=== PATIENT | female | born 1990 | race African-American/Black ===

== ENCOUNTER 2017-04-12 07:35 | Inpatient (IN) | payer BC, OTHER ==
[2017-04-12] MEDS: ELECTROLYTE-148 SOLN 1,000 ML IV SCH (08:00)
[2017-04-12] MEDS ORDERED: AMPICILLIN - 2 GM in SODIUM CHLORIDE 100 ML IVPB ONE (08:00)
[2017-04-12] MEDS ORDERED: ELECTROLYTE-148 SOLN 500 ML IV ONE (08:00)
[2017-04-12 08:20] VITALS: BMI 28.3
[2017-04-12 08:45] LABS: BASOPHIL 0.3 % (0-2.0); EOSINOPHIL 0.2 % (0-4.5); MCH 28.4 pg (25.7-33.7); MCHC 32.9 g/dl (32.0-36.0); MEAN CELL VOLUME 86.4 fl (80-96); MEAN PLT VOLUME 10.3 fl (7.5-11.1); NEUTROPHILS 82.2 % (42.8-82.8); PLATELET COUNT 166 K/MM3 (134-434); RDW 12.8 % (11.6-15.6); WHITE BLOOD COUNT 12.5 K/mm3 (4.0-10.0)
--- NOTE | 2017-04-12 08:48 | HP ---
Past Medical History - Primary Care Physician PCP:: Misael Giordano - Admission Chief Complaint: 37.2 weeks, labor, brandon breech History of Present Illness: 26 yo f g 1 p0 edc 05/01/17 care in [place] c/o contraction with ROM since 7 am today. cx 8 cm 100vx 0 mr breech presentation for c/s, rba discussed History Source: Patient Limitations to Obtaining History: No Limitations - Past Medical History ...: 1 ...Para: 0 ...Term: 0 ...: 0 ...Spon : 0 ...Induced : 0 ...Multiple Gestation: 0 ...LMP: 07/25/16 ... Weeks Gestation by Dates: 37.2 ...EDC by Dates: 05/01/17 ...EDC by Sono: 05/01/17 - Past Surgical History Hx Myomectomy: No Hx Transabdominal Cerclage: No - Smoking History Smoking history: Never smoked Have you smoked in the past 12 months: No - Alcohol/Substance Use Hx Alcohol Use: No History of Substance Use: reports: None - Social History History of Recent Travel: No Home Medications - Allergies Allergies/Adverse Reactions: Allergies Allergy/AdvReac Type Severity Reaction Status Date / Time No Known Allergies Allergy Verified 04/12/17 08:15 - Home Medications Home Medications: Ambulatory Orders Tablet 1 tab PO DAILY 04/12/17 Review of Systems - Review of Systems Constitutional: reports: No Symptoms Eyes: reports: No Symptoms HENT: reports: No Symptoms Neck: reports: No Symptoms Respiratory: reports: No Symptoms Gastrointestinal: reports: Abdominal Pain Genitourinary: reports: No Symptoms Breasts: reports: No Symptoms Reported Musculoskeletal: reports: No Symptoms Integumentary: reports: No Symptoms Neurological: reports: No Symptoms Endocrine: reports: No Symptoms Hematology/Lymphatic: reports: No Symptoms Psychiatric: reports: No Symptoms Physical Exam - Maternity Vital Signs: Vital Signs Temperature 98.6 F 04/12/17 08:00 Pulse Rate 110 H 04/12/17 08:00 Respiratory Rate 20 04/12/17 08:00 Blood Pressure 132/79 04/12/17 08:00 O2 Sat by Pulse Oximetry (%) Constitutional: Yes: Well Nourished, No Distress, Calm Eyes: Yes: WNL, Conjunctiva Clear, EOM Intact HENT: Yes: WNL, Atraumatic, Normocephalic Neck: Yes: WNL, Supple, Trachea Midline Cardiovascular: Yes: WNL, Regular Rate and Rhythm Breast(s): Yes: WNL - Abdominal Exam/OB Fundal Height: 36 Number of Fetuses: Single Presentation: Breech Contractions: Yes Regularity: Regular Intensity: Strong Monitor Mode: External Heart Rate Location: [facility] Category: I Accelerations: Uniform Decelerations: None - Vaginal Exam/OB Vaginal Bleediing: Bloody Show Speculum Exam: No Dilatation (cm): 8 Effacement (%): 80 Amniotic Membrane Status: Ruptured Amniotic Fluid: Yes: Clear Presentation: Brandon Breech Station: 0 - Physical Exam Musculoskeletal: Yes: WNL Extremities: Yes: WNL Edema: Yes Edema: LLE: Trace, RLE: Trace ...Motor Strength: WNL Psychiatric: Yes: WNL Hemorrhage Risk Assessment - Risk Factors Medium Risk Factors: Yes: None High Risk Factors: Yes: None Risk Score: 1 Risk Level: Medium Risk Problem List - Problems (1) with 37 weeks completed gestation Code(s): Z3A.37 - 37 WEEKS GESTATION OF (2) Labor established Code(s): ZNG1187 - (3) Breech presentation at Code(s): O32.1XX0 - MATERNAL CARE FOR BREECH PRESENTATION, UNSP Assessment/Plan c/s, rba discussed
[2017-04-12] MEDS ORDERED: oxyCODONE HCL 5 MG TABLET PO PRN ×2 (08:50)
[2017-04-12] MEDS ORDERED: BENZOCAINE 20% 57 GM BOTTLE TP PRN (08:50)
[2017-04-12] MEDS ORDERED: METHYLERGONOVINE MALEATE 0.2 MG/1 ML AMP IM PRN (08:50)
[2017-04-12] MEDS ORDERED: diphenhydrAMINE HCL 25 MG CAPSULE (FP) PO PRN (08:50)
[2017-04-12] MEDS ORDERED: BENZOCAINE 28 GM HEMORRHOIDAL OINTMENT PR PRN (08:50)
[2017-04-12] MEDS ORDERED: WITCH HAZEL 50% (TUCKS) 40 PAD/JAR PAD TP PRN (08:50)
[2017-04-12] MEDS ORDERED: morphine SULFATE/Preservative Free 0.5 MG/ML (1cc Syringe) SPIN ONE (08:56)
[2017-04-12 09:00] LABS: ALBUMIN 2.8 g/dl (3.4-5.0); ANION GAP 9 (8-16); BILIRUBIN,TOTAL 0.3 mg/dL (0.2-1.0); CALCIUM 8.5 mg/dL (8.5-10.1); CO2 24 mmol/L (21-32); CREATININE 0.5 mg/dL (0.55-1.02); GLUCOSE,RANDOM 90 mg/dL (74-106); SGOT/AST 14 U/L (15-37); SGPT/ALT 19 U/L (12-78); TOT PROT 6.2 g/dl (6.4-8.2)
[2017-04-12] MEDS ORDERED: OXYTOCIN 20 UNITS in 0.9% NS 20 UNIT/1,000 ML INFUS.BAG IV SCH (09:00)
[2017-04-12 09:01] LABS: ALK PHOS 130 U/L (45-117)
[2017-04-12 09:16] LABS: URINE APPEARANCE SLCLOUDY; URINE BILIRUBIN NEGATIVE (NEGATIVE); URINE BLOOD NEGATIVE (NEGATIVE); URINE COLOR YELLOW; URINE GLUCOSE (UA) NEGATIVE (NEGATIVE); URINE KETONE NEGATIVE (NEGATIVE); URINE NITRITE NEGATIVE (NEGATIVE); URINE PROTEIN NEGATIVE (NEGATIVE); URINE UROBILINOGEN NEGATIVE mg/dL (0.2-1.0)
[2017-04-12] MEDS ORDERED: ONDANSETRON 4 MG/2 ML VIAL IVPUSH PRN (09:25)
[2017-04-12 09:34] LABS: URINE MARIJUANA THC NEGATIVE ng/ml (CUTOFF=50)
[2017-04-12 09:48] LABS: PROTHROMBIN TIME (PATIENT) 11.3 SEC (9.98-11.88)
[2017-04-12 09:51] LABS: ACTIVATED PTT 28.4 SECONDS (26.9-34.4)
[2017-04-12] MEDS ORDERED: CEFAZOLIN 1 GM/D5W 50 ML IVPB SCH (10:00)
[2017-04-12] MEDS ORDERED: CITRIC ACID/SODIUM CITRATE 30 ML UNIT-DOSE CUP PO ONE (10:30)
[2017-04-12] MEDS: CEFAZOLIN 1 GM PUSH 1 GM/10 ML DISP.SYRIN IVPUSH SCH ×2 (10:41→22:11)
[2017-04-12] MEDS: OXYTOCIN 20 UNITS in 0.9% NS 20 UNIT/1,000 ML INFUS.BAG IV SCH (10:44)
[2017-04-12 11:07] LABS: HIV 1 & 2 AB NEGATIVE; HIV 1 AGp24 NEGATIVE
[2017-04-12] MEDS ORDERED: TUBERCULIN PPD 5 TU/0.1ML SYRINGE (IN PATIENT USE ONLY) ID ONE (11:30)
[2017-04-12] MEDS: IBUPROFEN 800 MG/8 ML IJ IVPB PRN (15:17)
[2017-04-12 17:32] LABS: URINE LEUK ESTERASE Negative (NEGATIVE)
[2017-04-13] MEDS ORDERED: TUBERCULIN PPD 5 TU/0.1ML SYRINGE (IN PATIENT USE ONLY) ID ONE (02:45)
--- NOTE | 2017-04-13 05:00 | PN ---
Post Progress Note - Subjective Subjective: 26 yo Para 1 status post primary , seen and evaluated. She c/o incision pain. Post Day: 1 Type of Delivery: Primary C/S Vital Signs: Vital Signs Temperature 98.9 F 04/13/17 02:00 Pulse Rate 120 H 04/13/17 02:00 Respiratory Rate 18 04/13/17 02:00 Blood Pressure 126/72 04/13/17 02:00 O2 Sat by Pulse Oximetry (%) 99 04/12/17 11:25 Breast Exam: Yes: Soft Uterus: Yes: Fundus Firm Incision: Yes: Dressing dry and intact Abdomen/GI: Yes: Abdomen soft Lochia: Yes: Rubra Lochia, amount: Small Extremities: Yes: Calves non-tender Perineum: Yes: Intact (She's lying in bed) - Labs Labs: CBC WBC 12.5 K/mm3 (4.0-10.0) H 04/12/17 08:10 RBC 4.94 M/mm3 (3.60-5.2) 04/12/17 08:10 Hgb 14.0 GM/dL (10.7-15.3) 04/12/17 08:10 Hct 42.7 % (32.4-45.2) 04/12/17 08:10 MCV 86.4 fl (80-96) 04/12/17 08:10 MCH 28.4 pg (25.7-33.7) 04/12/17 08:10 MCHC 32.9 g/dl (32.0-36.0) 04/12/17 08:10 RDW 12.8 % (11.6-15.6) 04/12/17 08:10 Plt Count 166 K/MM3 (134-434) 04/12/17 08:10 MPV 10.3 fl (7.5-11.1) 04/12/17 08:10 Neutrophils % 82.2 % (42.8-82.8) 04/12/17 08:10 Lymphocytes % 11.2 % (8-40) 04/12/17 08:10 Monocytes % 6.1 % (3.8-10.2) 04/12/17 08:10 Eosinophils % 0.2 % (0-4.5) 04/12/17 08:10 Basophils % 0.3 % (0-2.0) 04/12/17 08:10 Problem List - Problems (1) Status post primary low transverse section Code(s): Z98.891 - HISTORY OF UTERINE SCAR FROM PREVIOUS SURGERY Assessment/Plan Status post primary Stable Ambulation Analgesia as needed Continue routine post op care
[2017-04-13] MEDS: IBUPROFEN 800 MG/8 ML IJ IVPB PRN (05:55)
[2017-04-13 08:44] LABS: BASOPHIL 0.2 % (0-2.0); EOSINOPHIL 0.3 % (0-4.5); MCHC 33.3 g/dl (32.0-36.0); MEAN CELL VOLUME 86.9 fl (80-96); MEAN PLT VOLUME 9.7 fl (7.5-11.1); NEUTROPHILS 84.5 % (42.8-82.8); PLATELET COUNT 125 K/MM3 (134-434); RDW 12.4 % (11.6-15.6); WHITE BLOOD COUNT 9.8 K/mm3 (4.0-10.0)
[2017-04-13] MEDS ORDERED: BISACODYL 10 MG SUPP.RECT PR PRN (08:50)
[2017-04-13] MEDS: ENOXAPARIN NA (PORCINE) 40 MG/0.4 ML DISP.SYRIN SQ SCH (09:53)
--- NOTE | 2017-04-13 10:26 | PN ---
Progress Note (short form) - Note Progress Note: Anesthesia postop note 26 y/o F S/P spinal anesthesia for section, duramorph for postop pain management POD#1, vss, aaox3, no complaints, sensory motor intact distally No anesthesia complications.
[2017-04-13] MEDS: IBUPROFEN 600 MG TABLET (FP) PO PRN (14:21)
[2017-04-13] MEDS: SIMETHICONE 80 MG TAB.CHEW (FP) PO PRN (14:21)
[2017-04-13] MEDS: ACETAMINOPHEN 325 MG TABLET (FP) PO PRN (14:22)
[2017-04-14] MEDS: ACETAMINOPHEN 325 MG TABLET (FP) PO PRN ×3 (06:00→19:27)
[2017-04-14] MEDS: SIMETHICONE 80 MG TAB.CHEW (FP) PO PRN (06:00)
[2017-04-14] MEDS: IBUPROFEN 600 MG TABLET (FP) PO PRN ×3 (06:04→19:27)
--- NOTE | 2017-04-14 07:55 | PN ---
Post Progress Note - Subjective Subjective: pain scale 4/10 Post Day: 2 Type of Delivery: Primary C/S Vital Signs: Vital Signs Temperature 97.8 F 04/14/17 07:45 Pulse Rate 74 04/14/17 07:45 Respiratory Rate 18 04/14/17 07:45 Blood Pressure 121/77 04/14/17 07:45 O2 Sat by Pulse Oximetry (%) 99 04/12/17 11:25 Breast Exam: Yes: Soft, Other (attempting bf, bottle feeding as well ). No: Engorged Uterus: Yes: Fundus Firm, Fundus below umbilicus, Non-tender Incision: Yes: Harvey intact. No: Redness, Oozing Abdomen/GI: Yes: Abdomen soft, Passing flatus, Tolerating PO (diet). No: Abdominal Distention, Tender Lochia: Yes: Rubra Lochia, amount: Moderate Extremities: Yes: Calves non-tender Perineum: Yes: Intact Activity: Ambulating - Labs Labs: CBC WBC 9.8 K/mm3 (4.0-10.0) 04/13/17 08:00 RBC 3.78 M/mm3 (3.60-5.2) D 04/13/17 08:00 Hgb 10.9 GM/dL (10.7-15.3) D 04/13/17 08:00 Hct 32.8 % (32.4-45.2) D 04/13/17 08:00 MCV 86.9 fl (80-96) 04/13/17 08:00 MCH 29.0 pg (25.7-33.7) 04/13/17 08:00 MCHC 33.3 g/dl (32.0-36.0) 04/13/17 08:00 RDW 12.4 % (11.6-15.6) 04/13/17 08:00 Plt Count 125 K/MM3 (134-434) L D 04/13/17 08:00 MPV 9.7 fl (7.5-11.1) 04/13/17 08:00 Neutrophils % 84.5 % (42.8-82.8) H 04/13/17 08:00 Lymphocytes % 8.7 % (8-40) D 04/13/17 08:00 Monocytes % 6.3 % (3.8-10.2) 04/13/17 08:00 Eosinophils % 0.3 % (0-4.5) 04/13/17 08:00 Basophils % 0.2 % (0-2.0) 04/13/17 08:00 Assessment/Plan stable plan ct po care
[2017-04-14] MEDS: ENOXAPARIN NA (PORCINE) 40 MG/0.4 ML DISP.SYRIN SQ SCH (09:49)
[2017-04-14] MEDS: OXYTOCIN 20 UNITS in 0.9% NS 20 UNIT/1,000 ML INFUS.BAG IV SCH (18:59)
[2017-04-14] MEDS: DEXTROSE 5%-LACTATED RINGERS 1,000 ML IV SCH (19:01)
[2017-04-14] MEDS: ELECTROLYTE-148 SOLN 1,000 ML IV SCH (19:01)
[2017-04-14] MEDS ORDERED: SENNOSIDES/DOCUSATE COMBO (SENNA PLUS) TABLET (UD) PO PRN (22:00)
[2017-04-15] MEDS: IBUPROFEN 600 MG TABLET (FP) PO PRN (03:26)
[2017-04-15] MEDS: ACETAMINOPHEN 325 MG TABLET (FP) PO PRN (03:26)
[2017-04-15 08:48] LABS: BASOPHIL 0.2 % (0-2.0); EOSINOPHIL 1.1 % (0-4.5); MCH 28.7 pg (25.7-33.7); MCHC 33.1 g/dl (32.0-36.0); MEAN CELL VOLUME 86.7 fl (80-96); MEAN PLT VOLUME 9.1 fl (7.5-11.1); NEUTROPHILS 71.2 % (42.8-82.8); PLATELET COUNT 154 K/MM3 (134-434); RDW 12.8 % (11.6-15.6); WHITE BLOOD COUNT 6.4 K/mm3 (4.0-10.0)
[2017-04-15] MEDS: ENOXAPARIN NA (PORCINE) 40 MG/0.4 ML DISP.SYRIN SQ SCH (09:43)
--- NOTE | 2017-04-15 09:44 | DS ---
Physical Exam-SPLITTER TENDER Vital Signs: Vital Signs Temperature 98.1 F 04/14/17 22:00 Pulse Rate 73 04/14/17 22:00 Respiratory Rate 18 04/14/17 22:00 Blood Pressure 127/78 04/14/17 22:00 O2 Sat by Pulse Oximetry (%) 99 04/12/17 11:25 Constitutional: Yes: Well Nourished HENT: Yes: Atraumatic Neck: Yes: Supple, Trachea Midline Cardiovascular: Yes: Regular Rate and Rhythm Respiratory: Yes: Regular, CTA Bilaterally Gastrointestinal: Yes: Normal Bowel Sounds Pelvis: Yes: WNL External Genitalia: Yes: Normal Vaginal Exam: Yes: Normal Cervix: Yes: Normal Uterus: Yes: Firm Breast(s): Yes: WNL Musculoskeletal: Yes: WNL Extremities: Yes: WNL Wound/Incision: Yes: Harvey Intact Neurological: Yes: Alert, Oriented ...Motor Strength: WNL Psychiatric: Yes: Alert, Oriented Labs: CBC, BMP 04/15/17 07:35 04/12/17 08:10 Delivery - Delivery Type of Anesthesia: Spinal Episiotomy/Laceration: None EBL (cc): 500 Delivery, Single - Stages of Labor Date 1st Stage Initiatied: 04/12/17 Time 1st Stage Initiated: 06:00 Date of Delivery: 04/12/17 Time of Delivery: 09:06 Time Placenta Delivered: 09:07 - Condition of Infant Paper Wrapping Machine Operator/Health Care Analyst Present: Yes Name: Nannette Hammer Gender: Female Weight: 5 lb 14 oz Total Hours ROM (Hrs/Mins): 2/7 - 1 Minute Total Score: 9 5 Minutes Total Score: 9 - Feeding Plan Initial Plan: Elected not to breastfeed exclusively throughout hospitalization Discharge Summary Current Active Problems Breech presentation at (Acute) Labor established (Acute) with 37 weeks completed gestation (Acute) Status post primary low transverse section (Acute) Procedures: Principal: Primary Low Transverse Hospital Course: Routine Post op care Condition: Good - Instructions Diet, Activity, Other Instructions: Regular diet No lifting, no driving x 4 weeks Disposition: HOME - Home Medications Comprehensive Discharge Medication List: Ambulatory Orders Tablet 1 tab PO DAILY 04/12/17
[2017-04-15 12:15] VITALS: BP 117/76; PULSE 72; TEMP 98.3
--- NOTE | 2017-04-19 15:15 | PATH ---
Surgical Pathology Report Patient Name: MOJGAN KENNEDY [facility]. Rec. #: [id number] /Age/Gender: 1990 (Age: 26) / F Account: [id number] Location: [facility] OBS/BOAT FUELER Taken: 04/12/2017 Received: 04/13/2017 Reported: 04/19/2017 Physicians: Misael Giordano M.D. Specimen(s) Received PLACENTA Clinical History , breech-RM in labor 37.2 weeks Final Diagnosis PLACENTA, DELIVERY: SMALL (328 GRAM) FOCALLY DISRUPTED THIRD TRIMESTER PLACENTA WITH 3 VESSEL UMBILICAL CORD AND UNREMARKABLE PLACENTAL MEMBRANES. Electronically Signed You Pugh M.D. Gross Description The specimen is received fresh labeled placenta and is a 328 gram, 15.0 x 14.5 x 2.3 cm. placenta with attached membranes and umbilical cord. The attached membranes are gu, translucent with focal opacities and insert marginally. The umbilical cord measures 19 cm. in length and averages 1.2 cm. in diameter. The cord inserts eccentrically, 4.5 cm. to the nearest margin. No true knots or strictures are identified. Cut surface of the umbilical cord reveals 3 vessels. The surface is giang-blue with minimal fibrin deposition and appropriate caliber vessels. The maternal surface is red-brown with focal defects. Sectioning reveals red-brown, spongy parenchyma. No lesions are identified. Oxygen Furnace Operator sections are submitted in three cassettes as follows: 1- membrane rolls and umbilical cord; 2-3- full thickness sections of placenta. 04/15/201704/15/2017
== END 2017-04-15 13:55 | disposition home or self-care (01) | DRG 540 ==
LOC: JLDR 07:35 → J3W 11:48
PROVIDERS: ADMIT Obstetrics & Gynecology; ATTEND Obstetrics & Gynecology
PROC: 10D00Z1 Extraction of Products of Conception, Low, Open Approach (ICD-10-PCS; principal; 2017-04-12)
DX: O32.1XX0 Maternal care for breech presentation, not applicable or unspecified (principal); Z3A.37 37 weeks gestation of pregnancy; Z37.0 Single live birth
CPT/HCPCS: 36415; 76801-TC; 80053; 80307; 81003; 85025; 85610; 85730; 86593; 86762; 86850; 86900; 86901; 87340; 87389; 88307-TC